=== PATIENT | female | born 1980 | race Caucasian/White ===

== ENCOUNTER → 2019-01-02 12:00 | Outpatient (CLI) | payer BC ==
[2015-04-24 09:41] VITALS: BMI 26.9
[~2019-01-02 12:00] MED LIST: ADDERALL XR 2020 MG PO
== END | disposition home or self-care (01) ==
LOC: D.RAD 12:00
PROVIDERS: ATTEND Internal Medicine Pulmonary Disease
DX: R05 Cough (principal)

== ENCOUNTER → 2019-03-01 13:42 | Outpatient (CLI) | payer BC ==
[2015-04-24 09:41] VITALS: BMI 26.9
== END | disposition home or self-care (01) ==
LOC: D.US 13:30
PROVIDERS: ATTEND Surgery
DX: R60.0 Localized edema (principal)